=== PATIENT | male | born 1990 | race African-American/Black ===

== ENCOUNTER 2019-04-01 23:08 | Emergency (ER) | payer OTHER, MEDICAID ==
[~2019-04-01] VITALS: Ht 180.3 cm; Wt 148.8 kg
[2019-04-01 23:15] VITALS: BP_SYST 159
[2019-04-01 23:53] VITALS: BP_SYST 136
== END 2019-04-01 23:52 | disposition home or self-care (01) ==
LOC: SED 23:08
DX: T16.2XXA Foreign body in left ear, initial encounter (principal); E11.9 Type 2 diabetes mellitus without complications; I10 Essential (primary) hypertension; X58.XXXA Exposure to other specified factors, initial encounter; Y93.89 Activity, other specified; Y92.89 Other specified places as the place of occurrence of the external cause; Y99.8 Other external cause status
CPT/HCPCS: 99284